=== PATIENT | female | born 1965 | race Two or more races ===

== ENCOUNTER 2021-06-07 10:58 | Outpatient (AMBR) | payer MEDICAID, SELFPAY ==
--- NOTE | 2021-06-07 18:02 | PTNOTE_ITS ---
PT Outpatient Daily Note Date of Service: 06/07/21 OP Daily Note Visit Reasons: left knee Outpatient Physical Therapy Treatment Date: 06/07/21 Subjective: Pt returns with additional authorized visits and reports continued pain in the L knee and side of her thigh. 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 Continued patella compression sensitivity that limits WB and loading tolerances. Plan: Continue per POC Length of Time (minutes) of Treatment: 30 Minutes Office Procedures PT Treatments PT Date of Service: 06/07/21 Therapeutic Exercise 15 minutes: Yes Manual Submarine Advisory Team Watch Officer 15 minutes: Yes
== END 2021-06-30 23:59 | disposition home or self-care (01) ==
PROVIDERS: PCP Internal Medicine; Referring Provider Internal Medicine; Visit Provider Internal Medicine
DX: M25.562 Pain in left knee (principal)
CPT/HCPCS: 97110; 97140

== ENCOUNTER → 2024-06-01 | Outpatient (CLI) | payer MEDICAID, SELFPAY ==
--- NOTE | 2024-06-01 10:00 | XR_ITS ---
Examination: Screening digital mammography, bilateral Computer aided detection 3-D breast Tomosynthesis, bilateral Date and time of exam: June 01, 2024 0956 hours Compared to mammograms dating to 03/16/2021 Indication: Screening Technique: Nonmagnified MLO, CC views of the breasts to been obtained, reconstructed from 3-D Tomosynthesis images. R2 computer aided detection program utilized for evaluation of suspicious masses and/or abnormal calcifications. 3-D Tomosynthesis images obtained. Findings: Scattered areas of fibroglandular density Focus of architectural distortion upper outer right breast 14 mm Benign calcifications Impression: BI-RADS Category 0: Incomplete: Need additional imaging evaluation Focus of architectural distortion upper outer right breast anterior depth, recommend follow-up spot tomographic views of this asymmetry as well as right breast sonography to complete the workup
== END | disposition home or self-care (01) ==
PROVIDERS: Referring Provider Nurse Practitioner Family; Visit Provider Nurse Practitioner Family
DX: Z12.31 Encounter for screening mammogram for malignant neoplasm of breast (principal); R92.8 Other abnormal and inconclusive findings on diagnostic imaging of breast
CPT/HCPCS: 77063; 77067

== ENCOUNTER → 2024-08-05 | Outpatient (CLI) | payer MEDICAID, SELFPAY ==
--- NOTE | 2024-08-05 13:00 | XR_ITS ---
Examination: Breast ultrasound, unilateral, right complete Date and time of exam: August 05, 2024 1254 hours Comparison July 12, 2023 INDICATIONS: Mammogram December 21, 2022 focal asymmetry upper outer right breast 6 mm, mammogram June 01, 2024 architectural distortion upper outer right breast anterior depth Technique: Real-time torres scale ultrasonographic imaging performed right breast including all 4 quadrants as well as nipple retroareolar and axillary region. Findings: No cystic or solid mass IMPRESSION: BI-RADS Category 1: Negative study
--- NOTE | 2024-08-05 13:45 | XR_ITS ---
Examination: Diagnostic digital mammography, unilateral, right Computer aided detection 3-D breast Tomosynthesis, unilateral Date and time of exam: August 05, 2024 1358 hours INDICATIONS: Mammogram June 01, 2024 architectural distortion upper outer right breast Technique: Nonmagnified MLO, CC views of the right breast have been obtained, reconstructed from 3-D Tomosynthesis images. R2 computer aided detection program utilized for evaluation of suspicious masses and/or abnormal calcifications. 3-D Tomosynthesis images obtained. Findings: Scattered areas of fibroglandular density Possible architectural distortion upper right breast on the spot compression MLO view Impression: BI-RADS category 3: Probably benign findings One additional 6 month right mammogram follow-up is strongly advised to document stability of focal asymmetry upper right breast on the spot compression MLO view
== END | disposition home or self-care (01) ==
LOC: CDIM 13:07
PROVIDERS: PCP Nurse Practitioner Family; Referring Provider Nurse Practitioner Family; Visit Provider Nurse Practitioner Family
DX: R92.331 Mammographic heterogeneous density, right breast (principal); N64.89 Other specified disorders of breast
CPT/HCPCS: 76641; 77061; 77065; G0279

== ENCOUNTER 2024-10-16 08:35 | Emergency (ER) | payer MEDICAID, SELFPAY ==
[2024-10-16 08:35] VITALS: BMI 34.7
--- NOTE | 2024-10-16 08:41 | EKG_ITS ---
[facility] Test Date: 2024-10-16 Pat Name: ANNA SPRINGER Department: Room: - Gender: Female Orientation & Mobility Specialist: : 1965 Requested By: Arthur Rangel (EMILY) Order Number: [id number] Reading MD: Arthur Rangel (APPLIED COMPUTER SCIENCE PROFESSOR) Measurements Intervals [place] Rate: 63 P: 28 SD: 191 QRS: 86 QRSD: 92 T: -6 QT: 345 QTc: 355 Interpretive Statements SINUS RHYTHM POSSIBLE ANTERIOR MYOCARDIAL INFARCTION , PROBABLY OLD [30 ms Q WAVE IN V3/V4, OR R < 0.2 mV IN V4] Compared to ECG 10/01/2023 09:16:32 Myocardial infarct finding now present T-wave abnormality no longer present /store/S0/[id number]/ecg/[id number].pdf
[2024-10-16 08:49] VITALS: BP 132/79; PULSE 65; RESP 18; TEMP 36.8; O2SAT 98
--- NOTE | 2024-10-16 08:58 | XR_ITS ---
Termination: PA lateral chest 2 views TECHNIQUE: Upright PA lateral chest 2 views Exam date and time: October 16, 2024 0910 hours Comparison October 15, 2023 INDICATIONS: Chest pain shortness of breath today, history coccidioidomycosis FINDINGS: Again noted focus of parenchymal disease in left midlung No interval pneumonia or pulmonary edema The osseous structures are intact IMPRESSION: Stable likely chronic focus of parenchymal scarring in the left midlung No interval pneumonia or pulmonary edema Suggest continued follow-up 3 month PA lateral chest
--- NOTE | 2024-10-16 08:59 | PD.EDRME ---
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
[2024-10-16 09:35] LABS: Basophils % (Auto) 0 % (0-2.5); Eosinophils # (Auto) 0.1 Thou/mm3 (0.0-0.5); Eosinophils % (Auto) 1 % (0-10); Hematocrit 39.6 % (36.0-46.0); Hemoglobin 13.3 g/dL (12.0-16.0); Immature Granulocytes % (Auto) 0 % (0-0); Immature Granulocytes Auto 0.02 Thou/mm3 (0.00-0.00); Lymphocytes # (Auto) 1.8 Thou/mm3 (1.0-4.8); Lymphocytes % (Auto) 26 % (10-50); Mean Corpuscular HGB Conc 33.6 g/dl (31.0-37.0); Mean Corpuscular Hemoglobin 28.7 pg (25.0-35.0); Mean Corpuscular Volume 86 fL (80-100); Monocytes # (Auto) 0.4 Thou/mm3 (0.0-0.8); Monocytes % (Auto) 6 % (0-12); Neutrophils # (Auto) 4.6 Thou/mm3 (1.8-7.7); Neutrophils % (Auto) 67 % (37-80); Nucleated Red Blood Cell % 0 /100 WBC (0); Platelet Count 278 Thou/mm3 (140-440); RDW Standard Deviation 43.6 fL (36.4-46.3); Red Blood Count 4.63 Miln/mm3 (4.00-5.20); White Blood Count 6.9 Thou/mm3 (3.6-11.0)
[2024-10-16 09:53] LABS: Alanine Aminotransferase 22 U/L (10-49); Albumin, Serum 4.7 gm/dL (3.5-5.0); Albumin/Globulin Ratio 1.7 (1.2-2.2); Alkaline Phosphatase 100 U/L (46-116); Anion Gap 8 (7-16); Aspartate Amino Transferase 17 U/L (0-34); B-Type Natriuretic Peptide < 20 pg/mL (0-100); BUN/Creatinine Ratio 23 Ratio (12-20); Bilirubin,Total 0.6 mg/dL (0.3-1.2); Blood Urea Nitrogen 16 mg/dL (9-23); Calcium 9.3 mg/dL (8.3-10.6); Calcium (Corrected) 9.3 mg/dL (8.5-10.1); Carbon Dioxide 26.6 mMol/L (20.0-31.0); Chloride 108 mMol/L (98-107); Creatinine (Component) 0.7 mg/dL (0.6-1.3); Estimated Creatinine Clearance 89.2 mL/min (>60); Globulin 2.7 gm/dL (2.3-3.5); Glucose 121 mg/dL (74-106); Osmolality,Calculated 287 (275-295); Potassium 3.7 mMol/L (3.4-5.1); Sodium 143 mMol/L (136-145); Total Protein 7.4 gm/dL (5.7-8.2); Troponin I < 0.020 ng/mL (0.0-0.045); eGFR > 60 See Note
--- NOTE | 2024-10-16 10:50 | PC.NURSE ---
in to assess pt, pt with c/o cough, sob, and chest pain that radiates to the back. states it started 2 weeks ago. pt without further complaints at this time. workup is in progress. plan of care ongoing.
--- NOTE | 2024-10-16 10:55 | PD.EDSOB ---
ED SOB =RME/HPI General Chief Complaint: Shortness of Breath/Dyspnea Stated Complaint: SOB Arrival date/time: 10/16/24 08:35 RME / HPI RME / HPI Narrative: 10/16/24 08:35 59-year-old female with history of valley fever presents to the emergency department complaint of shortness of breath cough and pain DR. OMAR MCMULLEN ED EVALUATION: 59 year old female with history of Valley fever presents to the ED for evaluation of shortness of breath today. Reportedly began feeling short of breath several days ago and consulted with her doctor yesterday who prescribed patient an inhaler. States symptoms were worse this morning and used her inhaler with little relief, prompting ED visit. Accompanied by a dry cough and nasal congestion which she attributes to allergies. No other associated symptoms or complaints reported. Related Data Home Medications ?Medication ?Instructions ?Recorded ?Confirmed atorvastatin 40 mg tablet 40 mg PO QDAY 10/10/23 10/10/23 loratadine 10 mg tablet (Claritin) 10 mg PO QDAY 10/10/23 10/10/23 semaglutide 0.25 mg or 0.5 mg (2 0.25 mg subcut QWEEK 10/10/23 10/10/23 mg/3 mL) subcutaneous pen injector (Ozempic) Allergies Allergy/AdvReac Type Severity Reaction Status Date / Time No Known Allergies Allergy Verified 10/16/24 08:39 Review of Systems Review of Systems Narrative Review of Systems: Gen: No fever, no chills, no weight loss EYES: No discharge, no visual changes, no pain HEENT: No ear pain, + congestion, no sore throat PULM:+ shortness of breath, + cough, no congestion CV: + chest pain,no palpitations, no chest tightness GI: No nausea, no vomiting, no diarrhea, no pain, no constipation : No frequency, no urgency,? no dysuria Musc/skel: No joint pain, no back pain Skin: No rash, no ecchymosis, no lesions Neuro: No weakness, no headache Past Medical History Past Medical History CARDIAC: Positive Cardiac Disorders and Hypercholesterolemia RESPIRATORY: Positive Pneumonia GASTROINTESTINAL: Positive Gastrointestinal Disorders and Gall Bladder Disease MUSCULOSKELETAL: Positive Musculoskeletal Disorders and Arthritis HEMATOLOGIC: Positive Anemia PSYCHO/SOCIAL: Positive Anxiety OTHER HISTORY: Positive Chicken Pox, Measles and Mumps Family History FAMILY HISTORY: Positive Family Cardiac Disorders and Family Cancer Surgical History SURGICAL: Positive Abdominal Surgery Social History SMOKING STATUS: Never smoker ED Exam Narrative Physical exam: GENERAL APPEARANCE: AxOx4, no obvious distress, nontoxic appearing HEENT: NC, AT. MMM. EOMI, clear conjunctiva, oropharynx clear. NECK: Supple without lymphadenopathy. No stiffness or restricted ROM. HEART: Normal rate and regular rhythm, normal S1/S1, no m/r/g LUNGS: CTAB, moving air well. No crackles or wheezes are heard. ABDOMEN: Soft, nontender, nondistended with good bowel sounds heard. BACK: No midline C/T/L spine pain or deformity, No CVAT, no obvious deformity. EXTREMITIES: Without cyanosis, clubbing or edema. MUSCULOSKELETAL: FROM of all major joints, no chest tenderness NEUROLOGICAL: Grossly nonfocal. Alert and oriented, moving all 4 extremities. CN not formally tested but appear grossly intact. Skin: Warm and dry without any rash. Course Course Course Narrative: chest xray ordered to help determine etiology of shortness of breath. Quality Measures none Orders Category Date Time Status EKG (ED ONLY) *Do not use* NOW Care 10/16/24 08:41 Completed EKG (ED Only) Stat Exams 10/16/24 08:41 Draft XR chest 2V Stat Exams 10/16/24 08:58 Completed B-Type Natriuretic Peptide Stat Lab 10/16/24 09:03 Completed CBC Stat Lab 10/16/24 09:03 Completed Cocci Serology IgM with reflex to IgG [Cocci Serology, Lab 10/16/24 09:03 Received Unk History] Stat Comprehensive Metabolic Panel Stat Lab 10/16/24 09:03 Completed Troponin I Stat Lab 10/16/24 09:03 Completed Reevaluation(s) Reevaluation #1: Patient remains clinically stable throughout the emergency department visit. We reviewed all the results, analysis, and treatment plans. Patient is amenable to discharge. Strict return precautions were outlined. Patient was discharged in stable condition. Time: 10:50 Vital Signs Vital signs: Vital Signs Temperature 98.2 F 10/16/24 08:49 Pulse Rate 65 10/16/24 08:49 Respiratory Rate 18 10/16/24 08:49 Blood Pressure 132/79 H 10/16/24 08:49 Pulse Oximetry (%) 98 10/16/24 08:49 Oxygen Delivery Method Room Air 10/16/24 08:49 Pulse ox is 98% on room air which is adequate. Shortness of Breath / Dyspnea MDM Narrative MDM Narrative:: I, Juanita Mesa, am scribing for and in the presence of Dr. Baltazar. I reviewed the chest CT from one year ago, which shows scarring in the left lateral chest. The patient's EMR indicates a subsequent chest CT, which confirmed a slightly cavitary mass. Additionally, I reviewed the follow-up CT-guided biopsy and pathology report, which identified fungal elements. Patient data External records reviewed:: [facility] previous records (I reviewed ED visit on 03/27/2024 ) Clinical information provided by:: patient Social determinants that could affect healthcare access:: none Patient has the following chronic illnesses:: valley fever How is presenting disease/condition affected by chronic disease/condition?: exacerbated by Evaluation data The following diagnostics were reviewed and interpreted by me:: lab results, radiology exam(s) and EKG tracing(s) (EKG at 08:49 shows Sinus rhythm, rate 63, normal axis, normal intervals, no acute ischemic changes, no STEMI. ) Lab and/or radiology exams considered but not ordered:: None Interpretation Summary: Ordering Physician: Claire BERMUDEZ)Arthur NP Date of Service: 10/16/24 Procedure(s): XR chest 2V Accession Number(s): [id number] cc: Claire BERMUDEZ),Arthur DIAZ; Davis Manuel MD~ Termination: PA lateral chest 2 views TECHNIQUE: Upright PA lateral chest 2 views Exam date and time: October 16, 2024 0910 hours Comparison October 15, 2023 INDICATIONS: Chest pain shortness of breath today, history coccidioidomycosis FINDINGS: Again noted focus of parenchymal disease in left midlung No interval pneumonia or pulmonary edema The osseous structures are intact IMPRESSION: Stable likely chronic focus of parenchymal scarring in the left midlung No interval pneumonia or pulmonary edema Suggest continued follow-up 3 month PA lateral chest Dictated By:Davis Manuel MD Signed By:<Electronically signed by Davis Manuel MD in OV>10/16/24 0925 Medications / Prescriptions Medications or Prescriptions considered but not ordered:: None Medication administrations:: None Consultations Consultation(s) initiated? (list below): No Diagnosis Shortness of Breath Differential Diagnosis: acute exacerbation of chronic obstructive airways disease, community acquired pneumonia and asthma with exacerbation Most likely diagnosis given after review of the tests above:: Reactive airway disease Admission Indicated Admission indicated?: not indicated Admission Request Was there a request for admission?: No Disposition Plan Disposition Plan: Discharge Discharge Attestation Discharge Attestation: The patient and all family members were given an opportunity to ask questions and understood the discharge instructions. Discharge instructions specifically effects, indications for sooner follow up or return to the emergency department, and the expected course of current diagnosis. Patient condition: Stable Discharge Plan Plan Patient Disposition: HOME (Self Care) Prescriptions/Referrals Prescriptions/Med Rec: No Action atorvastatin 40 mg Tablet 40 mg PO QDAY loratadine [Claritin] 10 mg Tablet 10 mg PO QDAY Ozempic 0.25 mg or 0.5 mg (2 mg/3 mL) Pen Injector 0.25 mg SUBCUT QWEEK Rx Instructions: for 4 weeks Referrals: Yvonne Real PA-C [Primary Care Provider] - In 1 week Problem List Clinical Impression: RAD (reactive airway disease) Patient/Caregiver Discharge Instructions Education Materials: ED Inhaler Use Additional Instructions: You can follow-up with your shaker out for recheck. You can return to the emergency department sooner if symptoms worsen or for any new or concerning issues. Print Language: Kosovan Stand Alone Forms: Gabriela Award Info., Patient Portal Info Letter
[2024-10-16 11:28] VITALS: BP 123/69; PULSE 65; RESP 18; TEMP 36.6; O2SAT 99
[2024-10-16 12:50] LABS: Cocci Serology, IgM Negative (Negative)
[2024-10-17 11:10] LABS: Cocci Serology, IgG Negative (Negative)
== END 2024-10-16 11:29 | disposition home or self-care (01) ==
PROVIDERS: Nurse Practitioner Primary Care; Emergency Provider Emergency Medicine; PCP Physician Assistant
DX: J45.909 Unspecified asthma, uncomplicated (principal)
CPT/HCPCS: 36415; 71046; 80053; 83735; 83880; 84484; 85025; 86331; 86635; 93005; 99283

== ENCOUNTER 2024-11-11 12:05 | Day surgery (SDC) | payer MEDICAID, SELFPAY ==
[2024-11-10 11:57] VITALS: BMI 34.7
[2024-11-11] VITALS (12 sets, daily range): BP systolic 123–170; BP diastolic 68–112; PULSE 64–80; RESP 13–18; TEMP 36.2–37.2; O2SAT 96–100; BMI 33.6
[2024-11-11] MEDS: RINGERS LACTATED 1000 ML 1,000 ML 100 ML IV (13:49)
[2024-11-11] MEDS: fentaNYL CIT INJ 50 mCg/ML AMP 2ML (ASD USE ONLY) IV (13:55)
[2024-11-11] MEDS: MIDAZOLAM INJ 1 MG/ML VIAL 2 ML (ASD USE ONLY) 2 MG IV (14:08)
[2024-11-11] MEDS: DiphenhydrAMINE INJ 50 MG/ML VIAL 25 MG IV (14:08)
--- NOTE | 2024-11-11 15:27 | SUR.PHASEII ---
1422: Pt received in [facility] via gurney. Report from Kaci CASTILLO. Pt groggy. Easily aroused with eye opening. Resp even, unlabored. VS stable. No c/o pain, discomfort. 1455: Pt more awake, alert. VS stable. Denies pain. Sitting up tolerating po fluids with no difficulty swallowing and no n/v. 1512: Pt fully awake, oriented x3. Pt assisted to restroom. Ambulation steady. Pt and daughter stated understanding of discharge instructions. Pt discharged from [facility] in stable condition.
== END 2024-11-11 15:12 | disposition home or self-care (01) ==
PROVIDERS: PCP Physician Assistant; Referring Provider Surgery; Visit Provider Surgery
PROC: 0DBE8ZX Excision of Large Intestine, Via Natural or Artificial Opening Endoscopic, Diagnostic (ICD-10-PCS; CPT 45380; principal; 2024-11-11 13:45)
DX: Z12.11 Encounter for screening for malignant neoplasm of colon (principal); Z80.0 Family history of malignant neoplasm of digestive organs; Z86.0100 Personal history of colon polyps, unspecified
CPT/HCPCS: 45378; A4217; J1200; J2250; J3010; J7120

== ENCOUNTER → 2025-02-08 | Outpatient (CLI) | payer MEDICAID, SELFPAY ==
--- NOTE | 2025-02-08 15:30 | XR_ITS ---
Examination: Breast ultrasound complete, bilateral Date and time of exam: February 08, 2025 1545 hours INDICATIONS: Bilateral breast pain beginning several years ago, mammogram June 01, 2024 architectural distortion upper outer right breast 14 mm Technique: Real-time grayscale ultrasonographic imaging bilateral breasts, including all 4 quadrants as well as nipple retroareolar and axillary regions. Findings: Sonographic images right breast 10:00 circumscribed nodule 4 x 5 mm Sonographic images left breast No cystic or solid mass IMPRESSION: BI-RADS Category 3: Probably benign findings One additional 6 month right breast sonogram follow-up is needed to document stability of the 10:00 nodule right breast
== END | disposition home or self-care (01) ==
LOC: CDIM 15:12
PROVIDERS: PCP Physician Assistant; Referring Provider Physician Assistant; Visit Provider Physician Assistant
DX: N63.11 Unspecified lump in the right breast, upper outer quadrant (principal)
CPT/HCPCS: 76641

== ENCOUNTER → 2025-02-26 | Outpatient (CLI) | payer MEDICAID, SELFPAY ==
--- NOTE | 2025-02-26 14:16 | XR_ITS ---
Examination: PA lateral chest 2 views TECHNIQUE: Upright PA lateral chest 2 views Date and time: February 26, 2025 1448 hours, comparison October 16, 2024 INDICATIONS: Diagnosis coccidiomycosis one year ago. FINDINGS: Stable pulmonary scarring in the left upper lobe Mild prominence left ventricle No interval pneumonia or pulmonary edema. Moderate osteopenia. IMPRESSION: No interval pneumonia or pulmonary edema.
== END | disposition home or self-care (01) ==
LOC: CDIM 13:54
PROVIDERS: PCP Physician Assistant; Referring Provider Physician Assistant; Visit Provider Physician Assistant
DX: J18.9 Pneumonia, unspecified organism (principal)
CPT/HCPCS: 71046

== ENCOUNTER → 2025-03-25 | Outpatient (CLI) | payer MEDICAID, SELFPAY ==
--- NOTE | 2025-03-25 16:00 | XR_ITS ---
Examination: CT chest, without intravenous contrast. Sagittal and coronal 2-D reconstructions. Exam date and time: March 25, 2025, 1606 hours INDICATIONS: Diagnosis coccidiomycosis one year ago, pulmonary nodule left midlung 20 x [address] chest February 12, 2024 CTDI:vol (mGy) 16.5 DLP: (mGycm) 574 Technique: Multiple 3.0 mm axial sections of the chest to been obtained. Bone and lung density settings are obtained. Sagittal and coronal 2-D reconstructions have been obtained. Low dose protocols were performed. One or more of the following dose reduction techniques were used; automated exposure control, adjustment of the mA and/or KV according to patient size, use of iterative reconstruction technique. Findings: 16mm right thyroid nodule No thoracic aortic aneurysm dilatation Pulmonary artery segments are not enlarged. No paratracheal tracheobronchial or bronchopulmonary adenopathy 3 mm pulmonary nodule right upper lobe image 116 Again noted lobular pulmonary nodule 29 mm left midlung No interval pneumonia or pulmonary edema No visualized liver or splenic lesion Absent gallbladder No pancreatic or adrenal mass No hydronephrosis IMPRESSION: 16mm right thyroid nodule Stable 29 mm nodule left midlung 3 mm pulmonary nodule right upper lobe No active pneumonic infiltrate
== END | disposition home or self-care (01) ==
PROVIDERS: PCP Family Medicine; Referring Provider Internal Medicine; Visit Provider Internal Medicine
DX: R91.8 Other nonspecific abnormal finding of lung field (principal); E04.1 Nontoxic single thyroid nodule
CPT/HCPCS: 71250

== ENCOUNTER → 2025-04-30 | Outpatient (CLI) | payer MEDICAID, SELFPAY ==
--- NOTE | 2025-04-30 13:15 | XR_ITS ---
Examination: Diagnostic digital mammography, unilateral, right Computer aided detection 3-D breast Tomosynthesis, unilateral Date and time of exam: April 30, 2025, 1253 hours MEDICATIONS: Mammogram August 05, 2024 architectural distortion upper right breast Technique: Nonmagnified MLO, CC views of the right breast have been obtained, reconstructed from 3-D Tomosynthesis images. R2 computer aided detection program utilized for evaluation of suspicious masses and/or abnormal calcifications. 3-D Tomosynthesis images obtained. Findings: Scattered areas of fibroglandular density. Stable focal asymmetry upper right breast Impression: BI-RADS category 3: Probably benign findings Recommend bilateral 6-month mammography follow-up
== END | disposition home or self-care (01) ==
LOC: CDIM 12:41
PROVIDERS: Referring Provider Nurse Practitioner Family; Visit Provider Nurse Practitioner Family
DX: R92.331 Mammographic heterogeneous density, right breast (principal)
CPT/HCPCS: 77061; 77065; G0279

== ENCOUNTER 2025-05-16 09:43 | Emergency (ER) | payer MEDICAID, SELFPAY ==
[2025-05-16 09:45] VITALS: BMI 36.6
[2025-05-16 10:00] VITALS: BP 146/87; PULSE 73; RESP 18; TEMP 36.6; O2SAT 98
--- NOTE | 2025-05-16 10:49 | PD.EDADULT ---
ED General RME/HPI General Chief complaint: Skin/Abscess/Foreign Body Stated complaint: SPOTS TO ABD AREA SINCE THIS AM Time Seen by Provider: 05/16/25 10:49 Arrival date/time: 05/16/25 09:43 RME / HPI RME / HPI narrative: 59-year-old female who is prediabetic, hemoglobin A1c 6 as of a few days ago and checked her POC glucose this morning to be 140 otherwise denies any past medical history or any medication daily use presents to the ER complaining of spots to her abdomen x 1 day which she noticed today. Denies any fever, vomiting, diarrhea. Related Data Home Medications ?Medication ?Instructions ?Recorded ?Confirmed cetirizine 10 mg tablet 10 mg PO QDAY 11/10/24 11/11/24 ergocalciferol (vitamin D2) 1,250 1,250 mcg PO QWEEK 11/10/24 11/11/24 mcg (50,000 unit) capsule Previous Rx's ?Medication ?Instructions ?Recorded clotrimazole 1 % topical ointment 1 applic topical BID 4 weeks #56.7 05/16/25 grams Allergies Allergy/AdvReac Type Severity Reaction Status Date / Time No Known Allergies Allergy Verified 05/16/25 09:46 ED Exam Narrative Physical exam: Constitutional: Vital Signs Reviewed. Well appearing. No acute distress. Not toxic appearing. Head: Normocephalic, atraumatic. Eyes: Conjunctiva clear. ENT: Mucous membranes moist. Neck: Trachea midline. Normal range of motion. No nuchal rigidity. Respiratory: Normal effort. No respiratory distress or accessory muscle use. Abdomen: Soft and nontender to palpation without distention. No guarding or rebound. Neuro: Alert and oriented. Speech normal. No focal gross motor or sensory deficits observed. Skin: Warm, dry, normal color. Positive erythematous scaly rash noted to pannus scantly. No induration or tenderness to palpation overlying the rash. Psych: Pleasant. Normal affect. Cooperative. Course Quality Measures none Reevaluation(s) Reevaluation #1: At the time of reassessment, the patient remains alert and oriented ?3 with GCS 15. Vitals are normal, pain is controlled, and the patient is tolerating oral intake without nausea or vomiting. The patient is agreeable to discharge and verbalizes understanding of the diagnosis, studies, treatment plan, medications (including side effects/precautions), and strict ER return precautions as discussed in the ED. All concerns were addressed, and the patient is comfortable with the plan. Vital Signs Vital signs: Vital Signs Temperature 97.8 F 05/16/25 10:00 Pulse Rate 73 05/16/25 10:00 Respiratory Rate 18 05/16/25 10:00 Blood Pressure 146/87 H 05/16/25 10:00 Pulse Oximetry (%) 98 05/16/25 10:00 Oxygen Delivery Method Room Air 05/16/25 10:00 Discharge Plan Plan Patient Disposition: HOME (Self Care) Patient condition on transfer: Stable Prescriptions/Referrals Prescriptions/Med Rec: New clotrimazole 1 % ointment 1 applic topical BID 28 Days Qty: 56.7 0RF No Action cetirizine 10 mg tablet 10 mg PO QDAY Patient Comments: TAKE ONE TABLET BY MOUTH AT BEDTIME FOR ALLERGY ergocalciferol (vitamin D2) 1,250 mcg (50,000 unit) capsule 1,250 mcg PO QWEEK Patient Comments: TAKE ONE CAPSULE BY MOUTH EVERY WEEK Referrals: No Primary/Family,Physician [Referring Provider] - In 1 week Problem List Clinical Impression: Tinea corporis Patient/Caregiver Discharge Instructions Education Materials: ED Fungal Skin Infection (Tinea) Additional Instructions: Follow up with your primary medical doctor within 24 hours. Return to the Emergency Room immediately for any new, worsening, continuing symptoms or any concerns at all. Return to the Emergency Room within 24 hours if you are unable to follow up with your primary medical doctor within 24 hours. Print Language: Slovenian Stand Alone Forms: Gabriela Award Info., Patient Portal Info Letter MDM Narrative MDM hospital course (for use when minimal MDM required): MDM Suspect: Rash is likely 2/2 tinea corporis No mucocutaneous lesions/vesicular lesions to suggest TENS/SJS No induration, fluctuance, severe warmth, fever, streaking to suggest suppurative bacterial infection No petechial or raised purpura to suggest vasculitis, hemolytic, thrombocytopenic rash No systemic signs ie respiratory distress etc. to suggest anaphylaxis No fever, extremity desquamation, mucocutaneous changes, conjunctivitis, adenopathy to suggest Kawasaki disease Plan for supportive treatment, clotrimazole, f/u with pmd 1-2 days
== END 2025-05-16 12:40 | disposition home or self-care (01) ==
PROVIDERS: Emergency Provider Emergency Medicine; PCP Family Medicine
DX: B35.4 Tinea corporis (principal)
CPT/HCPCS: 99281

== ENCOUNTER → 2025-06-02 | Outpatient (CLI) | payer MEDICAID, SELFPAY ==
--- NOTE | 2025-06-02 13:00 | XR_ITS ---
Examination: Screening digital mammography, bilateral Computer aided detection 3-D breast Tomosynthesis, bilateral Date and time of exam: June 02, 2025, 1254 hours, compared to mammograms dating October 07, 2015 Indication: Screening Technique: Nonmagnified MLO, CC views of the breasts to been obtained, reconstructed from 3-D Tomosynthesis images. R2 computer aided detection program utilized for evaluation of suspicious masses and/or abnormal calcifications. 3-D Tomosynthesis images obtained. Findings: Scattered areas of fibroglandular density Suspicious for small area of architectural distortion upper outer right breast anterior depth Benign calcifications Impression: BI-RADS Category 0: Incomplete: Need additional imaging evaluation Recommend follow-up spot tomographic views of small area of possible architectural distortion upper outer right breast as well as right breast sonography to complete the work-up
== END | disposition home or self-care (01) ==
LOC: CDIM 12:45
PROVIDERS: Referring Provider Specialist; Visit Provider Specialist
DX: Z12.31 Encounter for screening mammogram for malignant neoplasm of breast (principal); R92.8 Other abnormal and inconclusive findings on diagnostic imaging of breast
CPT/HCPCS: 77063; 77067

== ENCOUNTER → 2025-06-18 | Outpatient (CLI) | payer MEDICAID, SELFPAY ==
--- NOTE | 2025-06-18 14:30 | XR_ITS ---
EXAMINATION: Thyroid sonography complete TECHNIQUE: Grayscale sonographic images thyroid lobes Date and time: June 18, 2025, 1420 hours INDICATIONS: CT examination 03/25/2000 2516 mm right thyroid nodule. FINDINGS: Right thyroid 3.3 cm Lower pole cyst 19 x 13 x 13 mm No solid nodules Left thyroid 2.9 cm No solid thyroid nodules IMPRESSION: Lower pole right thyroid cyst, 19 x 13 x 13 mm No solid nodules
== END | disposition home or self-care (01) ==
LOC: CDIM 14:06
PROVIDERS: PCP Family Medicine; Referring Provider Internal Medicine; Visit Provider Internal Medicine
DX: E04.1 Nontoxic single thyroid nodule (principal)
CPT/HCPCS: 76536

== ENCOUNTER 2025-06-23 16:05 | Emergency (ER) | payer MEDICAID, SELFPAY ==
[2025-06-23 16:17] VITALS: BP 127/78; PULSE 80; RESP 20; TEMP 36.8; O2SAT 96; BMI 35.4
[2025-06-23] MEDS: KETOROLAC INJ 30 MG/ML VIAL IM (16:52)
--- NOTE | 2025-06-23 17:47 | PD.EDBACK ---
ED Back Injury Pain RME/HPI General Chief Complaint: Back Pain/Injury Stated Complaint: LOWER BACK PAIN X 3 DAYS Time Seen by Provider: 06/23/25 16:25 Arrival date/time: 06/23/25 16:05 59-year-old female presents to the emergency department today for complaints of acute on chronic back pain patient reports no saddle anesthesia no loss of bowel or bladder no fever nausea or vomiting. Patient course no abdominal pain or chest pain. Patient reports he feels it is a muscle spasm. Limitations: no limitations Related Data Home Medications ?Medication ?Instructions ?Recorded ?Confirmed cetirizine 10 mg tablet 10 mg PO QDAY 11/10/24 11/11/24 ergocalciferol (vitamin D2) 1,250 1,250 mcg PO QWEEK 11/10/24 11/11/24 mcg (50,000 unit) capsule Previous Rx's ?Medication ?Instructions ?Recorded cyclobenzaprine 10 mg tablet 10 mg PO TID PRN muscle spasm 10 06/23/25 days #30 tab-caps ibuprofen 800 mg tablet 800 mg PO TID PRN pain #30 tabs 06/23/25 prednisone 10 mg tablet 30 mg (3 x 10 mg) PO BID 3 days 06/23/25 #18 tabs Allergies Allergy/AdvReac Type Severity Reaction Status Date / Time No Known Allergies Allergy Verified 06/23/25 16:06 Review of Systems Review of Systems Systems Reviewed: All systems reviewed, normal except as documented Constitutional Constitutional: Reports system reviewed and no additional complaints, except as documented, Denies fever(s) and Denies headache(s) Eyes Eyes: Reports system reviewed and no additional complaints, except as documented and Denies blurry vision ENT Ears, Nose, Mouth, and Throat: Reports system reviewed and no additional complaints, except as documented, Denies headache(s), Denies nasal congestion and Denies nasal discharge Cardiovascular Cardiovascular: Reports system reviewed and no additional complaints, except as documented, Denies chest pain and Denies dyspnea Respiratory Respiratory: Reports system reviewed and no additional complaints, except as documented, Denies chest congestion, Denies cough and Denies dyspnea Gastrointestinal Gastrointestinal: Reports system reviewed and no additional complaints, except as documented and Denies abdominal pain Musculoskeletal Musculoskeletal: Reports system reviewed and no additional complaints, except as documented, Denies abnormal gait, Denies arthralgias, Denies atrophy and Reports back pain Integumentary/Breasts Skin/Breast: Reports system reviewed and no additional complaints, except as documented and Denies rash Neurologic Neurologic: Reports system reviewed and no additional complaints, except as documented, Reports as per HPI, Denies abnormal gait and Denies headache(s) Past Medical History Past Medical History NEUROLOGIC: Negative Neurological Disorders or Seizures CARDIAC: Positive Cardiac Disorders and Hypercholesterolemia; Negative Congestive Heart Failure RESPIRATORY: Positive Pneumonia; Negative Chronic Obstructive Pulmonary Disease (COPD), Asthma, Emphysema or Tuberculosis GASTROINTESTINAL: Positive Gastrointestinal Disorders, Gall Bladder Disease and Diverticulitis GENITOURINARY: Negative Genitourinary Disorders or Renal Disease REPRODUCTIVE: Negative Breast Cancer MUSCULOSKELETAL: Positive Musculoskeletal Disorders and Arthritis ENDOCRINE: Negative Endocrine Disorders, Diabetes Mellitus Type 1 or Diabetes Mellitus Type 2 HEMATOLOGIC: Positive Anemia; Negative Blood Disorders PSYCHO/SOCIAL: Positive Anxiety OTHER HISTORY: Positive Chicken Pox, Measles and Mumps; Negative Autoimmune Disease, Blood Transfusions, Blood Transfusion Reaction, Anesthesia Reactions, Organ Transplant, Cancer or Breast Cancer Family History FAMILY HISTORY: Positive Family Cardiac Disorders and Family Cancer Surgical History SURGICAL: Positive Abdominal Surgery; Negative Cardiac Surgery, Pacemaker, Endocrine Surgery, Ear Surgery, Nephrectomy, Joint Replacement, Neurologic Surgery, Mastectomy or Organ Transplant Social History SMOKING STATUS: Never smoker ED Exam General Limitations: Present no limitations General appearance: Present alert and in no apparent distress Head Head exam: Present atraumatic Eye Eye exam: Present normal appearance, PERRL and EOMI ENT ENT exam: Present normal exam, normal oropharynx and mucous membranes moist Neck Neck exam: Present normal inspection, full ROM and trachea midline Chest Chest inspection: Present normal inspection and symmetric chest wall rise Respiratory Respiratory exam: Present normal lung sounds bilaterally Cardiovascular Cardiovascular exam: Present regular rate, normal rhythm and normal heart sounds Abdominal Exam Abdominal exam: Present soft and normal bowel sounds; Absent distention or tenderness Extremities Exam Extremities exam: Present normal inspection and full ROM Back Exam Back exam: Present normal inspection, full ROM, tenderness and paraspinal tenderness; Absent CVA tenderness (R) or CVA tenderness (L) Neurological Exam Neurological exam: Present alert, oriented X3 and CN II-XII intact Psychiatric Psychiatric exam: Present normal affect and normal mood Skin Skin exam: Present warm, dry, intact and normal color Course Quality Measures none Orders Category Date Time Status CYCLObenzaPRINE [Flexeril] Med 06/23/25 16:25 Discontinued 10 mg PO X1 ONE Ketorolac Inj [Toradol Inj] Med 06/23/25 16:25 Discontinued 30 mg IM X1 ONE dexAMETHasone INJ [Decadron Inj] Med 06/23/25 16:25 Discontinued 10 mg PO X1 ONE Vital Signs Vital signs: Vital Signs Temperature 98.2 F 06/23/25 16:17 Pulse Rate 80 06/23/25 16:17 Respiratory Rate 20 06/23/25 16:17 Blood Pressure 127/78 06/23/25 16:17 Pulse Oximetry (%) 96 06/23/25 16:17 Oxygen Delivery Method Room Air 06/23/25 16:17 o2 sat 96 Back Pain / Injury MDM Narrative MDM Narrative:: 59-year-old female presents to the emergency department today for complaints of acute on chronic back pain patient reports no saddle anesthesia no loss of bowel or bladder no fever nausea or vomiting. Patient course no abdominal pain or chest pain. Patient reports he feels it is a muscle spasm. Clinically patient well-appearing does not appear look toxic no acute distress Patient mild tenderness in lower back no swelling patient walks with steady gait Patient given pain medication I did offer lab work and imaging patient declined Patient discharged home in no distress to follow-up with primary care doctor in the next 24 to 48 hours and for any worsening symptoms to return to the ER immediately Patient data External records reviewed:: [facility] previous records Clinical information provided by:: patient Social determinants that could affect healthcare access:: none Patient has the following chronic illnesses:: See history How is presenting disease/condition affected by chronic disease/condition?: uneffected by Evaluation data The following diagnostics were reviewed and interpreted by me:: other (specify) (N/A) Lab and/or radiology exams considered but not ordered:: Considered not ordered Interpretation Summary: N/A Medications / Prescriptions Medications or Prescriptions considered but not ordered:: Given Medication administrations:: Medication Administration History Discontinued Medications Cyclobenzaprine HCl (Cyclobenzaprine 5 Mg Tablet) 10 mg PO X1 ONE Stop: 06/23/25 16:26 Last Admin: 06/23/25 16:50 Dose: 5 mg Documented By: SANDY Comments: pt stated 10mg maker her feel off and refused 5mg. provider made aware Dexamethasone Sodium Phosphate (Dexamethasone Sod Phos Inj 10 Mg/Ml Vial) 10 mg PO X1 ONE Stop: 06/23/25 16:26 Last Admin: 06/23/25 16:51 Dose: 10 mg Documented By: SANDY Ketorolac Tromethamine (Ketorolac Inj 30 Mg/Ml Vial) 30 mg IM X1 ONE Stop: 06/23/25 16:26 Last Admin: 06/23/25 16:52 Dose: 30 mg Documented By: SANDY Given Consultations Consultation(s) initiated? (list below): No Diagnosis Differential diagnosis back pain/injury: lumbar radiculopathy, sciatica and strain of lumbar region Most likely diagnosis given after review of the tests above:: Back pain Admission Indicated Admission indicated?: not indicated Admission Request Was there a request for admission?: No Disposition Plan Disposition Plan: Discharge Discharge Attestation Discharge Attestation: The patient and all family members were given an opportunity to ask questions and understood the discharge instructions. Discharge instructions specifically effects, indications for sooner follow up or return to the emergency department, and the expected course of current diagnosis. Patient condition: Stable Discharge Plan Plan Patient Disposition: HOME (Self Care) Discharge Disposition comment: Stable Prescriptions/Referrals Prescriptions/Med Rec: New cyclobenzaprine 10 mg tablet 10 mg PO TID PRN (Reason: muscle spasm) 10 Days Qty: 30 0RF prednisone 10 mg tablet 30 mg PO BID 3 Days Qty: 18 0RF ibuprofen 800 mg tablet 800 mg PO TID PRN (Reason: pain) Qty: 30 0RF No Action cetirizine 10 mg tablet 10 mg PO QDAY Patient Comments: TAKE ONE TABLET BY MOUTH AT BEDTIME FOR ALLERGY ergocalciferol (vitamin D2) 1,250 mcg (50,000 unit) capsule 1,250 mcg PO QWEEK Patient Comments: TAKE ONE CAPSULE BY MOUTH EVERY WEEK Problem List Clinical Impression: Back pain Patient/Caregiver Discharge Instructions Education Materials: Back Safety: Bending Additional Instructions: Please follow up with your primary care doctor in the next 24-48hrs for any worsening symptoms return here immediately Print Language: Tunisian Stand Alone Forms: Gabriela Award Info., Patient Portal Info Letter PA/FIRE APPARATUS ENGINEER Supervising Physician PA/FIRE APPARATUS ENGINEER Supervising Physician: Dr. lópez
== END 2025-06-23 17:10 | disposition home or self-care (01) ==
LOC: SERX 17:02
PROVIDERS: Emergency Provider Family Medicine
DX: M54.50 Low back pain, unspecified (principal); G89.29 Other chronic pain
CPT/HCPCS: 96372; 99282; J1100; J1885; A9270